=== PATIENT | female | born 1965 | race Asian ===

== ENCOUNTER 2016-11-18 18:56 | Emergency (ER) | payer MEDICAID ==
[~2016-11-18] VITALS: Ht 165.1 cm; Wt 72.6 kg
[2016-11-18 20:12] LABS: Basophils # (auto) 0 uL; Basophils % (auto) 0.2 % (0.0-2.0); CONDITION Y; Eosinophils # (auto) 0.1 uL; Eosinophils % (auto) 1.6 % (0.0-7.0); Hematocrit 44.2 % (36.0-46.0); Hemoglobin 14.8 g/dL (12.2-16.2); Lymphocytes # (auto) 1.5 uL; Lymphocytes % (auto) 27.3 % (10.0-50.0); Mean Corpuscular Hemoglobin 29.9 pg (28.0-32.0); Mean Corpuscular Hgb Conc. 33.4 g/dL (32.0-36.0); Mean Corpuscular Volume 89.5 fL (80.0-100.0); Monocytes # (auto) 0.3 uL; Monocytes % (auto) 5.7 % (0.0-12.0); Neutrophils # (auto) 3.7 uL; Neutrophils % (auto) 65.2 % (37.0-80.0); Platelet Count (auto) 281 10^3/uL (140-450); Red Cell Distribution Width 14.4 % (11.6-16.0); White Blood Cell 5.6 10^3/uL (4.4-10.8)
[2016-11-18] MEDS ORDERED: SODIUM CHLORIDE 0.9% 1,000 ML IV ONE (20:15)
[2016-11-18 20:34] LABS: Acetaminophen < 2.0 ug/mL (10-30); Salicylate < 1.7 mg/dL (2.8-20.0)
[2016-11-18 20:35] LABS: Albumin 4.1 g/dL (3.4-5.0); BUN/Creatinine Ratio 9.3; Bilirubin, Total 0.5 mg/dL (0.2-1.0); Calcium 9.6 mg/dL (8.5-10.1); Total Protein 7.9 g/dL (6.4-8.2)
[2016-11-18 21:47] VITALS: BP 140/68
== END 2016-11-18 22:34 | disposition home or self-care (01) ==
LOC: EDBD 18:56 → ER 19:08
DX: E86.0 Dehydration (principal); C92.10 Chronic myeloid leukemia, BCR/ABL-positive, not having achieved remission; Z88.6 Allergy status to analgesic agent; Z88.8 Allergy status to other drugs, medicaments and biological substances
CPT/HCPCS: 36415; 70450; 71020; 80053; 80320; 80329; 84443; 84702; 85025; 93005; 96360